=== PATIENT | female | born 1980 | race Caucasian/White ===

== ENCOUNTER 2016-07-18 11:27 | Emergency (ER) | payer MEDICAID ==
[~2016-07-18] VITALS: Ht 172.7 cm; Wt 79.8 kg
[2016-07-18 11:34] VITALS: BP 113/71
--- NOTE | 2016-07-18 13:29 | NUR ---
Patient ambulated to bed 03.
--- NOTE | 2016-07-18 13:43 | NUR ---
Dr. Acevedo evaluating patient at bedside.
[2016-07-18 14:05] VITALS: BP 110/80
--- NOTE | 2016-07-18 14:05 | NUR ---
Patient discharged with v/s stable. Written and verbal after care instructions given and explained. Patient alert, oriented and verbalized understanding of instructions. Ambulatory with steady gait. All questions addressed prior to discharge. ID band removed. Patient advised to follow up with PMD. Rx of ELIMITE given. Patient educated on indication of medication including possible reaction and side effects. Opportunity to ask questions provided and answered.
== END 2016-07-18 14:05 | disposition home or self-care (01) ==
LOC: MED 11:27
DX: B86 Scabies (principal)
CPT/HCPCS: 99282